=== PATIENT | male | born 1990 | race Caucasian/White ===

== ENCOUNTER → 2017-01-20 | Outpatient (CLI) | payer OTHER ==
[2017-01-20 13:14] LABS: BASO % 0.9 % (0.0-1.0); EOS # 0.1 K/mm3 (0.0-0.50); EOS % 2.6 % (0.0-3.0); LARGE UNSTAINED CELL # 0.1 K/mm3 (0.0-0.4); LARGE UNSTAINED CELL % 1.7 % (0.0-4.0); LYMPH # 2.2 K/mm3 (1.5-6.5); LYMPH % 40.9 % (24.0-44.0); MEAN CORPUSCULAR HEMOGLOBIN 30.9 pg (27.0-33.0); MEAN CORPUSCULAR HGB CONC 34.2 g/dl (32.0-36.5); MEAN CORPUSCULAR VOLUME 90.3 fl (80.0-96.0); MONO # 0.3 K/mm3 (0.0-0.8); MONO % 6.4 % (0.0-5.0); NEUTROPHILS # 2.5 K/mm3 (1.8-7.7); NEUTROPHILS % 47.5 % (36.0-66.0); PLATELET COUNT, AUTOMATED 279 k/mm3 (150-450); RED CELL DISTRIBUTION WIDTH 12.8 % (11.5-14.5); WHITE BLOOD COUNT 5.2 K/mm3 (4.0-10.0)
[2017-01-20 13:41] LABS: ALBUMIN 4.8 GM/DL (3.2-5.2); ALBUMIN/GLOBULIN RATIO 1.85 (1.00-1.93); ALKALINE PHOSPHATASE 50 U/L (45-117); ALT/SGPT 22 U/L (12-78); ANION GAP 7 MEQ/L (8-16); AST/SGOT 17 U/L (15-37); BILIRUBIN,TOTAL 0.8 MG/DL (0.2-1.0); BLOOD UREA NITROGEN 12 MG/DL (7-18); CALCIUM LEVEL 9.6 MG/DL (8.5-10.1); CARBON DIOXIDE LEVEL 28 MEQ/L (21-32); CHLORIDE LEVEL 105 MEQ/L (98-107); CREATININE FOR GFR 0.81 MG/DL (0.70-1.30); FREE T4 0.99 NG/DL (0.76-1.46); GLOMERULAR FILTRATION RATE > 60.0 (>60); GLUCOSE, FASTING 99 MG/DL (70-105); POTASSIUM SERUM 4.7 MEQ/L (3.5-5.1); SODIUM LEVEL 140 MEQ/L (136-145); TOTAL PROTEIN 7.4 GM/DL (6.4-8.2)
== END ==
LOC: M SMT 09:55
PROVIDERS: ATTEND Family Medicine
DX: E16.1 Other hypoglycemia (principal); R63.4 Abnormal weight loss; R53.83 Other fatigue

== ENCOUNTER → 2017-05-07 | Outpatient (CLI) | payer OTHER ==
[2017-05-07 11:10] LABS: ALBUMIN 4.5 GM/DL (3.2-5.2); ALBUMIN/GLOBULIN RATIO 1.67 (1.00-1.93); ALKALINE PHOSPHATASE 49 U/L (45-117); ALT/SGPT 25 U/L (12-78); ANION GAP 7 MEQ/L (8-16); AST/SGOT 16 U/L (15-37); BILIRUBIN,TOTAL 0.8 MG/DL (0.2-1.0); BLOOD UREA NITROGEN 11 MG/DL (7-18); CALCIUM LEVEL 9.5 MG/DL (8.5-10.1); CARBON DIOXIDE LEVEL 31 MEQ/L (21-32); CHLORIDE LEVEL 102 MEQ/L (98-107); CREATININE FOR GFR 0.88 MG/DL (0.70-1.30); GLOMERULAR FILTRATION RATE > 60.0 (>60); GLUCOSE, FASTING 94 MG/DL (70-105); POTASSIUM SERUM 4.7 MEQ/L (3.5-5.1); SODIUM LEVEL 140 MEQ/L (136-145); TOTAL PROTEIN 7.2 GM/DL (6.4-8.2)
== END ==
LOC: M SMT 08:15
PROVIDERS: ATTEND Family Medicine
DX: E16.1 Other hypoglycemia (principal)

== ENCOUNTER → 2019-07-25 | Outpatient (REF) | payer OTHER, SELFPAY | LOC: M LAB LCGH 09:47 | PROVIDERS: ATTEND Surgery | DX: D21.6 Benign neoplasm of connective and other soft tissue of trunk, unspecified (principal) ==

== ENCOUNTER → 2022-10-28 | Outpatient (REF) | payer OTHER | LOC: M SMT 17:20 | PROVIDERS: ATTEND Urology | DX: Z30.2 Encounter for sterilization (principal) ==